=== PATIENT | male | born 1985 | race Caucasian/White ===

== ENCOUNTER 2024-05-27 02:46 | Emergency (ER) | payer OTHER ==
[~2024-05-27] VITALS: Ht 167.6 cm; Wt 86.0 kg
[2024-05-27 02:51] VITALS: O2SAT 96
[2024-05-27 03:05] VITALS: BP 131/93; PULSE 78; RESP 20; O2SAT 97
[2024-05-27 04:45] VITALS: TEMP 98.4
[2024-05-27] MEDS: ACETAMINOPHEN 325MG TABLET PO ONE (04:45)
[2024-05-27 04:57] LABS: CLARITY URINE CLOUDY (CLEAR); COLOR URINE YELLOW (YELLOW); GLUCOSE URINE NEGATIVE (NEGATIVE); KETONES URINE NEGATIVE (NEGATIVE); LEUKOCYTE ESTERASE URINE NEGATIVE (NEGATIVE); NITRITE URINE NEGATIVE (NEGATIVE); OCCULT BLOOD URINE 3+ (NEGATIVE); PROTEIN URINE TRACE (NEGATIVE); SPECIFIC GRAVITY URINE 1.029 (1.005-1.030); UROBILINOGEN URINE 0.2 E.U./dL (0.2-1.0)
[2024-05-27 05:28] LABS: RBC URINE TNTC /hpf (0-2); WBC URINE 0-2 /hpf (0-2)
[2024-05-27 05:29] LABS: BACTERIA URINE 1+; SQUAMOUS EPITHELIAL CELL URINE FEW /lpf (RARE/1+)
[2024-05-27] MEDS ORDERED: ACET-2708 MT (05:48)
== END 2024-05-27 06:08 | disposition home or self-care (01) ==
LOC: ER 02:46
DX: R51.9 Headache, unspecified (principal); Z88.1 Allergy status to other antibiotic agents; Z88.2 Allergy status to sulfonamides
CPT/HCPCS: 81003; 99284